=== PATIENT | female | born 1965 | race Caucasian/White ===

== ENCOUNTER 2016-10-23 07:06 | Day surgery (SDC) | payer BC ==
[~2016-10-23 07:06] MED LIST: ACETAMINOPHEN 1,000 MG/100 ML BTL IV ONE; FAMOTIDINE 20MG TABLET PO ONE; MECLIZINE 25 MG TABLET PO ONE; METOCLOPRAMIDE 10 MG TABLET PO ONE
[2016-10-23] MEDS ORDERED: HYDROCODONE/APAP 5/325MG TABLET PO ONE (13:08)
[2016-10-23] MEDS ORDERED: LABETALOL HCL 5MG/ML, 20ML VIAL IVPB ONE (14:00)
[2016-10-23] MEDS ORDERED: MIDAZOLAM HCL 2MG/2ML VIAL IV ONE (14:00)
[2016-10-23] MEDS ORDERED: CHLOROPROCAINE INJ ONE (14:00)
[2016-10-23] MEDS ORDERED: ALFENTANIL HCL 500 MCG/1ML, 2ML AMP IV ONE (14:00)
[2016-10-23] MEDS ORDERED: KETOROLAC 30 MG/ML VIAL IVP ONE (14:00)
[2016-10-23] MEDS ORDERED: ONDANSETRON HCL IV 4 MG/2 ML VIAL IVP ONE (14:00)
[2016-10-23] MEDS ORDERED: PROPOFOL 10 MG/ML VIAL IV ONE (14:00)
--- NOTE | 2016-10-24 09:59 | ULTRASOUND REPORT ---
EXAM: ULTRASOUND GUIDED LEFT BREAST WIRE LOCALIZATION WITH POST PROCEDURE DIGITAL MAMMOGRAPHY AND SPECIMEN RADIOGRAPHY HISTORY: THIS IS A 51-YEAR-OLD FEMALE WITH A 1 CM OVAL HYPOECHOIC MASS AT THE 2 :00 O'CLOCK POSITION OF THE LEFT BREAST. SURGICAL EXCISION. The procedure for ultrasound guided wire localization of the left breast with post procedure digital mammography and specimen radiography was discussed in detail with the patient including risks, alternatives, and possible complications. Informed consent was obtained. The 1 cm hypoechoic mass at the 2:00 o'clock position of the left breast was localized. The skin was prepped and draped in the usual sterile fashion. The skin and subcutaneous tissues were anesthetized with 5 ml of 2% Nesacaine. Under direct ultrasound guidance, a 9 cm Kopans needle was utilized to insert a localization wire immediately adjacent to the hypoechoic mass. The needle was removed and hemostasis achieved. The skin was cleansed and bandaged appropriately. The patient was transferred to the Mammography Suite where full field digital CC and mediolateral views of the left breast were obtained. These demonstrate the thick portion of the localization wire immediately adjacent to the 1 cm mass. Specimen radiography confirms removal of the 1 cm mass and localization wire. IMPRESSION: ULTRASOUND GUIDED LEFT BREAST WIRE LOCALIZATION WITH POST PROCEDURE DIGITAL MAMMOGRAPHY AND SPECIMEN RADIOGRAPHY ABOVE. THE MASS AND LOCALIZATION WIRE ARE CONTAINED WITHIN THE SPECIMEN. JOB NUMBER: [id number] MTDD
--- NOTE | 2016-10-25 12:38 | Operative Note ---
DATE OF SURGERY: 10/23/2016 Surgeon: Pavan Shepard DO PREOPERATIVE DIAGNOSIS: Left breast mass. POSTOPERATIVE DIAGNOSIS: Left breast mass. OPERATION: Wide localization with open left breast biopsy. Indication: The patient is a 51-year-old female who underwent recent mammography. She was noted to have an abnormality on her inner left breast that had the characteristics of a fibroadenoma. I did give her options of observation, stereotactic core biopsy, or open excisional biopsy. She really wanted to minimize the number of procedures which were done and therefore elected to go straight to wide localization and open biopsy. I let her know that if this did come back a malignancy, potential other surgical intervention may be needed. She understood this fully. Thereafter, consent was signed and questions answered. PROCEDURE: She was taken to the operating room and placed in a supine position. General anesthesia was administered per the department of anesthesia. The patient had undergone a prior localization and these films were reviewed with Radiology. The patient's left breast was prepped and draped in sterile fashion. At this time, adequate timeout was performed. No antibiotic was needed preoperatively. At this time, following curvilinear lines, the area was mapped out. The curvilinear incision was then anesthetized with a total of 4 mL of 0.25% Sensorcaine with epinephrine. A 4 cm curvilinear incision was made incorporating the wire in the middle. This was carried down into the subcutaneous tissue. At this time a 4-5 cm circumferential biopsy cavity was created incorporating the mass and wire. This was then sent to radiology where x-ray was done. This did show the mass in the center as well as complete retrieval of the wire. At this time the wound was then irrigated and closed with 3-0 and 4-0 Vicryl. She was taken to the recovery room in satisfactory condition. Final pathology pending. CC: Dr. Rich MARLEY
== END 2016-10-23 11:20 | disposition home or self-care (01) ==
LOC: SUR 07:06
PROVIDERS: ATTEND Surgery
DX: D24.2 Benign neoplasm of left breast (principal); F17.200 Nicotine dependence, unspecified, uncomplicated
CPT/HCPCS: 19125; 19285; 00400; G0206; J1885; J2405; J2400

== ENCOUNTER 2017-06-20 07:49 | Day surgery (SDC) | payer OTHER ==
[~2017-06-20 07:49] MED LIST changes: -ACETAMINOPHEN 1,000 MG/100 ML BTL IV ONE; +SCOPOLAMINE 1 PATCH TDSY TD ONE
[2017-06-20] MEDS ORDERED: FENTANYL PF 100MCG/2ML VIAL IV ONE (07:50)
[2017-06-20] MEDS ORDERED: BUPIVACAINE 0.5% W/EPI MPF 30 ML VIAL IVP ONE (07:50)
[2017-06-20] MEDS ORDERED: PROPOFOL 10 MG/ML VIAL IV ONE (07:50)
--- NOTE | 2017-06-20 18:07 | Operative Note - [place] ---
DATE OF SURGERY: 06/20/17 PREOPERATIVE DIAGNOSIS: CERVICAL SPONDYLOSIS WITHOUT MYELOPATHY, ICD-10 CODE = M47.812. OPERATION: RADIOFREQUENCY RHIZOTOMY BILATERAL CERVICAL FACETS 3/4, 4/5, AND 5/6. SURGEON: KRYSTLE AMARO D.O. ANESTHESIA: LOCAL SEDATION. ANESTHESIA PROVIDER: FREDDIE REYES CRNA INDICATION: This patient presents with primary neck pain. Examination shows diffuse tenderness of the cervical spine. Range of motion causing pain to the neck with extension. Diagnostics show diffuse multiple levels of endplate changes and spondylosis. A facet series 75 to 80% pain control. Due to the failure of therapy and the success of the facet series, the patient presents for rhizotomy for more long-term relief. She is allergic to Lidocaine and allergic to corticosteroids so no Lidocaine will be used and unfortunately the corticosteroid allergy will prevent us from using a Medrol DosePak, which can be quite important in terms of calming the postprocedural pain down. PROCEDURE: Intravenous line, vital sign monitoring, IV sedation, prepped, draped, sterile technique. Facet cervical spine 3/4, 4/5, and 5/6 were identified, marked, and infiltrated. A 22-gauge rhizotomy cannula positioned. Stimulation trials conducted. Rhizotomy burn performed. Local was injected into the sites. Needle was removed. Neck cleaned. Topical antibiotics. Sterile dressing was applied. We will monitor and evaluate. cc: Darrion Lazaro M.D. JOB NUMBER: [id number] MTDD
== END 2017-06-20 10:49 | disposition home or self-care (01) ==
LOC: SUR 07:49
PROVIDERS: ATTEND Pain Medicine Interventional Pain Medicine
DX: M47.812 Spondylosis without myelopathy or radiculopathy, cervical region (principal)
CPT/HCPCS: 64633; 64634 ×2; 01936; J3010

== ENCOUNTER 2017-12-06 15:18 | Emergency (ER) | payer OTHER ==
[2017-12-06 15:51] LABS: BASO % 0.3 % (0-6); EOS % 2.3 % (0-6); GRAN % 57.3 % (47-80); HEMATOCRIT 50.2 % (35.0-47.0); HEMOGLOBIN 16.9 gm/dl (11.6-16.0); LYMPH % 32.7 % (16-45); MEAN CELL VOLUME 95.6 fl (81-97); MEAN CORPUSCULAR HGB CONC 33.7 g/dl (32-36); MEAN PLATELET VOLUME 10.5 fl (7.4-10.4); MONO % 7.4 % (0-9); PLATELET COUNT 308 K/uL (130-400); RED BLOOD COUNT 5.25 M/uL (3.80-5.40); RED CELL DISTRIBUTION WIDTH 13.3 % (11.5-14.5); WHITE BLOOD COUNT W/O DIFF 9.3 K/uL (4.2-12.2)
[2017-12-06 15:52] LABS: MEAN CORPUSCULAR HEMOGLOBIN 32.1 pg (27-33)
[2017-12-06 16:04] LABS: BLOOD UREA NITROGEN 17 mg/dL (6-20); CREATININE 0.9 mg/dL (0.5-0.9); EST GLOMERULAR FILTRATION RATE > 60 mL/min
[2017-12-06 16:07] LABS: GLUCOSE,RANDOM 76 mg/dL (74-109)
--- NOTE | 2017-12-06 16:11 | Emergency Department Record ---
History of Present Illness - General Chief complaint: Abscess Stated complaint: LUMP ON BACK OF NECK Time Seen by Provider: 12/06/17 15:37 Source: Patient Mode of Arrival: Ambulatory Limitations: No limitations - History of Present Illness Initial comments: pt has swelling and tenderness over posterior neck for last day. she has tenz unit wires in the area that were placed 8 years ago complaint: Other Onset/Timin -: Days(s) Hx Tetanus Toxoid Vaccination: Yes (2016) Year of Tetanus Vaccination: 2017 Patient Tetanus UTD (within 5 yrs): Yes Location: Neck Severity: Moderate Severity scale (1-10): 4 Quality: Other Consistency: Constant, Getting worse Improves with: None Worsens with: None Associated symptoms: Denies other symptoms Treatments Prior to Arrival: None - Related Data Previous Rx's Medication Instructions Recorded Cephalexin [Keflex] 500 mg PO TID #21 cap 12/06/17 Hydrocodone/Acetaminophen [[place] 1 each PO Q6HR #7 tablet 12/06/17 5-325 Tablet] Allergies Allergy/AdvReac Type Severity Reaction Status Date / Time lidocaine Allergy ANAPHYLAXIS Verified 12/06/17 15:23 codeine AdvReac NAUSEA AND Verified 12/06/17 15:23 VOMITING erythromycin base AdvReac RASH Verified 12/06/17 15:23 Penicillins AdvReac RASH Verified 12/06/17 15:23 prednisone AdvReac RASH Verified 12/06/17 15:23 Travel Screening - Travel/Exposure Within Last 30 Days Have you traveled within the last 30 days?: No - Travel/Exposure Within Last Year Have you traveled outside the [place] in the last year?: No - Additonal Travel Details Have you been exposed to anyone with a communicable illness?: No - Travel Symptoms Symptom Screening: None Review of Systems Reviewed: No additional complaints except as noted below Constitutional: Reports: As per HPI. Denies: Chills, Fever, Malaise, Night sweats, Weakness, Weight change Eyes: Reports: As per HPI. Denies: Eye discharge, Eye pain, Photophobia, Vision change ENT: Reports: As per HPI. Denies: Congestion, Dental pain, Ear pain, Epistaxis , Hearing loss, Throat pain Respiratory: Reports: As per HPI. Denies: Cough, Dyspnea, Hemoptysis, Stridor, Wheezes Cardiovascular: Reports: As per HPI. Denies: Arrhythmia, Chest pain, Dyspnea on exertion, Edema, Murmurs, Orthopnea, Palpitations, Paroxysmal nocturnal dyspnea, Rheumatic Fever, Syncope Endocrine: Reports: As per HPI. Denies: Fatigue, Heat or cold intolerance, Polydipsia, Polyuria Gastrointestinal: Reports: As per HPI. Denies: Abdominal pain, Constipation, Diarrhea, Hematemesis, Hematochezia, Melena, Nausea, Vomiting Genitourinary: Reports: As per HPI. Denies: Abnormal menses, Discharge, Dyspareunia, Dysuria, Frequency, Hematuria, Incontinence, Retention, Urgency Musculoskeletal: Reports: As per HPI, Neck pain. Denies: Arthralgia, Back pain , Gout, Joint swelling, Myalgia Skin: Reports: As per HPI. Denies: Bruising, Change in color, Change in hair/ nails, Lesions, Pruritus, Rash Neurological: Reports: As per HPI. Denies: Abnormal gait, Confusion, Headache, Numbness, Paresthesias, Seizure, Tingling, Tremors, Vertigo, Weakness Psychiatric: Reports: As per HPI. Denies: Anxiety, Auditory hallucinations, Depression, Homicidal thoughts, Suicidal thoughts, Visual hallucinations Hematological/Lymphatic: Reports: As per HPI. 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) Comment:: carotid artery aneurysm which is clipped 2003 - GI Hx GI Disorders: Yes Hx Reflux: Yes (on meds good control) - Hx Genitourinary Disorders: Yes Hx Bladder Problem: Yes (urethral dilation) Comment:: hyst - ENDOCRINE Hx Endocrine Disorders: Yes Hx Thyroid Disease: Yes Comment:: farheen disease - MUSCULOSKELETAL Hx Musculoskeletal Disorders: Yes Hx Arthritis: Yes (neck) Hx Back Injury: Yes - PSYCH Hx Psych Problems: No - HEMATOLOGY/ONCOLOGY Hx Hematology/Oncology Disorders: No Family Medical History Any Significant Family History?: Yes Hx Cancer: Father *Cancer Comment: bone; prostate; esophageal Hx Heart Disease: Father Physical Exam - General General Appearance: Alert, Oriented x3, Cooperative, Mild distress - Head Head exam: Normal inspection - Eye Eye exam: Normal appearance, PERRL, EOMI Pupils: Normal accommodation - ENT ENT exam: Normal exam, Mucous membranes moist, Normal external ear exam, Normal orophraynx Ear exam: Normal external inspection. negative: External canal tenderness Nasal Exam: Normal inspection. negative: Discharge, Sinus tenderness Mouth exam: Normal external inspection, Tongue normal Teeth exam: Normal inspection. negative: Dental caries Throat exam: Normal inspection. negative: Tonsillar erythema, Tonsillar exudate - Neck Neck exam: Full ROM, Lymphadenopathy, Tenderness - Respiratory Respiratory exam: Normal lung sounds bilaterally. negative: Respiratory distress - Cardiovascular Cardiovascular Exam: Regular rate, Normal rhythm, Normal heart sounds - GI/Abdominal GI/Abdominal exam: Soft, Normal bowel sounds. negative: Tenderness - Rectal Rectal exam: Deferred - exam: Deferred - Extremities Extremities exam: Normal inspection, Full ROM, Normal capillary refill. negative: Tenderness - Back Back exam: Reports: Normal inspection, Full ROM. Denies: Muscle spasm, Rash noted, Tenderness - Neurological Neurological exam: Alert, CN II-XII intact, Normal gait, Oriented X3 - Psychiatric Psychiatric exam: Normal affect, Normal mood - Skin Skin exam: Dry, Intact, Normal color, Warm Course Vital Signs 12/06/17 15:23 Temperature 98.4 F Pulse Rate [ 97 H Pulse Ox Probe] Respiratory 18 Rate Blood Pressure 152/109 [Left Arm] Pulse Ox 96 Medical Decision Making - Lab Data Result diagrams: 12/06/17 15:45 12/06/17 15:45 Lab Results 12/06/17 Range/Units 15:45 WBC 9.3 (4.2-12.2) K/uL RBC 5.25 (3.80-5.40) M/uL Hgb 16.9 H (11.6-16.0) gm/dl Hct 50.2 H (35.0-47.0) % MCV 95.6 (81-97) fl MCH 32.1 (27-33) pg MCHC 33.7 (32-36) g/dl RDW 13.3 (11.5-14.5) % Plt Count 308 (130-400) K/uL MPV 10.5 H (7.4-10.4) fl Gran % 57.3 (47-80) % Lymphocytes % 32.7 (16-45) % Monocytes % 7.4 (0-9) % Eosinophils % 2.3 (0-6) % Basophils % 0.3 (0-6) % Disposition Disposition: Discharge Clinical Impression: Lymphadenitis Disposition: Home, Self-Care Condition: (1) Good Instructions: Lymphadenopathy (ED) Additional Instructions: follow up with dr mcknight and with dr rodriguez. return sooner if worse. moist heat to neck 4 x a day. motrin with food Prescriptions: Hydrocodone/Acetaminophen [[place] 5-325 Tablet] 1 each PO Q6HR #7 tablet Cephalexin [Keflex] 500 mg PO TID #21 cap Forms: Patient Portal Access Quality - Quality Measures Quality Measures: N/A - Blood Pressure Screening Does Patient Have Any of the Following: No Blood Pressure Classification: Hypertensive Reading Systolic Measurement: 152 Diastolic Measurement: 109 Screening for High Blood Pressure: < First Hypertensive BP, F/U Documented > [ G8950] First Hypertensive Follow-up Interventions: Follow-up with rescreen GT 1 day and LT 4 weeks.
--- NOTE | 2017-12-07 07:32 | CT SCAN REPORT ---
EXAM: CT OF THE SOFT TISSUE NECK WITH CONTRAST HISTORY: SWELLING AND PAIN POSTERIORLY. TECHNIQUE: Contrast enhanced CT of the soft tissue neck was obtained. Comparison: None. FINDINGS: Spinal stimulator leads course through the posterior subcutaneous tissues through the posterior neck. No discreet fluid collection is identified. The parapharyngeal spaces are unremarkable. The parotid gland, submandibular gland, and thyroid glands appear normal. The orbits and globes are unremarkable. No cervical adenopathy. Old degenerative disk disease in the cervical spine. IMPRESSION: NERVE STIMULATOR LEADS ARE PRESENT IN THE POSTERIOR NECK. NO DISCREET FLUID COLLECTION OR MASS IS IDENTIFIED. JOB NUMBER: [id number] MTDD
== END 2017-12-06 17:15 | disposition home or self-care (01) ==
LOC: ER 15:18
DX: L04.0 Acute lymphadenitis of face, head and neck (principal); F17.210 Nicotine dependence, cigarettes, uncomplicated
CPT/HCPCS: 99283; 99284; 85025; 80048; 70491; Q9967

== ENCOUNTER 2018-09-29 18:07 | Emergency (ER) | payer BC ==
[2018-09-29] MEDS ORDERED: 0.9 % SODIUM CHLORIDE 1,000 ML BAG IV ONE (18:25)
[2018-09-29] MEDS ORDERED: KETOROLAC 30 MG/ML VIAL IVP ONE (18:25)
--- NOTE | 2018-09-29 18:33 | Emergency Department Record ---
History of Present Illness - General Chief Complaint: Abdominal Pain Stated Complaint: PAIN IN R SIDE Time Seen by Provider: 09/29/18 18:15 Source: Patient Mode of Arrival: Ambulatory Limitations: No limitations - History of Present Illness Initial Comments: pt c/o ruq pain and epigastric pain for 4 days that is getting worse and is constant. resting makes better, movement makes worse. no n/v/c/d. no uti symptoms/ pt has no appy and no gb. MD Complaint: Abdominal pain Onset/Timin -: Days(s) Severity: Moderate Consistency: Constant Improves With: Rest Worsens With: Movement Associated Symptoms: Denies other symptoms - Related Data Patient : No Previous Rx's Medication Instructions Recorded Hydrocodone/Acetaminophen [[place] 1 each PO Q6HR #7 tablet 09/29/18 5-325 Tablet] Omeprazole [Prilosec] 20 mg PO DAILY #10 cap. 09/29/18 Allergies Allergy/AdvReac Type Severity Reaction Status Date / Time acetaminophen Allergy RASH Verified 09/29/18 18:48 [From Darvocet-N] lidocaine Allergy ANAPHYLAXIS Unverified 08/28/18 11:43 propoxyphene Allergy RASH Verified 09/29/18 18:48 [From Darvocet-N] codeine AdvReac NAUSEA AND Unverified 08/28/18 11:43 VOMITING erythromycin base AdvReac RASH Unverified 08/28/18 11:43 Penicillins AdvReac RASH Unverified 08/28/18 11:43 prednisone AdvReac RASH Unverified 08/28/18 11:43 Review of Systems Reviewed: No additional complaints except as noted below Constitutional: Reports: As per HPI. Denies: Chills, Fever, Malaise, Night sweats, Weakness, Weight change Eyes: Reports: As per HPI. Denies: Eye discharge, Eye pain, Photophobia, Vision change ENT: Reports: As per HPI. Denies: Congestion, Dental pain, Ear pain, Epistaxis, Hearing loss, Throat pain Respiratory: Reports: As per HPI. Denies: Cough, Dyspnea, Hemoptysis, Stridor, Wheezes Cardiovascular: Reports: As per HPI. Denies: Arrhythmia, Chest pain, Dyspnea on exertion, Edema, Murmurs, Orthopnea, Palpitations, Paroxysmal nocturnal dyspnea, Rheumatic Fever, Syncope Endocrine: Reports: As per HPI. Denies: Fatigue, Heat or cold intolerance, Polydipsia, Polyuria Gastrointestinal: Reports: As per HPI. Denies: Abdominal pain, Constipation, Diarrhea, Hematemesis, Hematochezia, Melena, Nausea, Vomiting Genitourinary: Reports: As per HPI. Denies: Abnormal menses, Discharge, Dyspareunia, Dysuria, Frequency, Hematuria, Incontinence, Retention, Urgency Musculoskeletal: Reports: As per HPI. Denies: Arthralgia, Back pain, Gout, Joint swelling, Myalgia, Neck pain Skin: Reports: As per HPI. Denies: Bruising, Change in color, Change in hair/nails, Lesions, Pruritus, Rash Neurological: Reports: As per HPI. Denies: Abnormal gait, Confusion, Headache, Numbness, Paresthesias, Seizure, Tingling, Tremors, Vertigo, Weakness Psychiatric: Reports: As per HPI. Denies: Anxiety, Auditory hallucinations, Depression, Homicidal thoughts, Suicidal thoughts, Visual hallucinations Hematological/Lymphatic: Reports: As per HPI. 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) Comment:: carotid artery aneurysm which is clipped 2003 - GI Hx GI Disorders: Yes Hx Reflux: Yes (on meds good control) - Hx Genitourinary Disorders: Yes Hx Bladder Problem: Yes (urethral dilation) Comment:: hyst - ENDOCRINE Hx Endocrine Disorders: Yes Hx Thyroid Disease: Yes Comment:: farheen disease - MUSCULOSKELETAL Hx Musculoskeletal Disorders: Yes Hx Arthritis: Yes (neck) Hx Back Injury: Yes - PSYCH Hx Psych Problems: No - HEMATOLOGY/ONCOLOGY Hx Hematology/Oncology Disorders: No Family Medical History Hx Cancer: Father *Cancer Comment: bone; prostate; esophageal Hx Heart Disease: Father Physical Exam - General General Appearance: Alert, Oriented x3, Cooperative, Mild distress - Head Head exam: Normal inspection - Eye Eye exam: Normal appearance, PERRL, EOMI Pupils: Normal accommodation - ENT ENT exam: Normal exam, Mucous membranes moist, Normal external ear exam, Normal orophraynx Ear exam: Normal external inspection. negative: External canal tenderness Nasal Exam: Normal inspection. negative: Discharge, Sinus tenderness Mouth exam: Normal external inspection, Tongue normal Teeth exam: Normal inspection. negative: Dental caries Throat exam: Normal inspection. negative: Tonsillar erythema, Tonsillar exudate - Neck Neck exam: Normal inspection, Full ROM. negative: Tenderness - Respiratory Respiratory exam: Normal lung sounds bilaterally. negative: Respiratory distress - Cardiovascular Cardiovascular Exam: Regular rate, Normal rhythm, Normal heart sounds - GI/Abdominal GI/Abdominal exam: Soft, Normal bowel sounds, Tenderness - Rectal Rectal exam: Deferred - exam: Deferred - Extremities Extremities exam: Normal inspection, Full ROM, Normal capillary refill. negative: Tenderness - Back Back exam: Reports: Normal inspection, Full ROM. Denies: Muscle spasm, Rash noted, Tenderness - Neurological Neurological exam: Alert, Normal gait, Oriented X3, Reflexes normal - Psychiatric Psychiatric exam: Normal affect, Normal mood - Skin Skin exam: Dry, Intact, Normal color, Warm Course - Reevaluation(s) Reevaluation #1: 09/29/18 21:43 ct is neg Reevaluation #2: 09/29/18 21:44 pt feels better Medical Decision Making - Lab Data Result diagrams: 09/29/18 18:30 09/29/18 18:30 Disposition Disposition: Discharge Clinical Impression: Abdominal pain Qualifiers: Abdominal location: upper abdomen, unspecified Qualified Code(s): R10.10 - Upper abdominal pain, unspecified Disposition: Home, Self-Care Condition: (1) Good Instructions: Abdominal Pain (ED) Additional Instructions: follow up with GI doctor. return sooner if worse Prescriptions: Hydrocodone/Acetaminophen [[place] 5-325 Tablet] 1 each PO Q6HR #7 tablet Omeprazole [Prilosec] 20 mg PO DAILY #10 cap. Referrals: GABRIELLA COATES [DOCTOR OF OSTEOPATH] - [facility] Specialty Clinics [Provider Group] Forms: Patient Portal Access Quality - Quality Measures Quality Measures: N/A - Blood Pressure Screening Does Patient Have Any of the Following: No Blood Pressure Classification: Hypertensive Reading Systolic Measurement: 166 Diastolic Measurement: 116 Screening for High Blood Pressure: < First Hypertensive BP, F/U Documented > [G8950] First Hypertensive Follow-up Interventions: Follow-up with rescreen GT 1 day and LT 4 weeks.
[2018-09-29 19:00] LABS: ABSOLUTE NEUTROPHIL COUNT 3.83; BASO % 0.8 % (0-6); EOS % 2.8 % (0-6); HEMATOCRIT 46.1 % (35.0-47.0); HEMOGLOBIN 15.3 gm/dl (11.6-16.0); LYMPH % 42.2 % (16-45); MEAN CELL VOLUME 94.1 fl (81-97); MEAN CORPUSCULAR HEMOGLOBIN 31.2 pg (27-33); MEAN CORPUSCULAR HGB CONC 33.2 g/dl (32-36); MEAN PLATELET VOLUME 10.4 fl (7.4-10.4); MONO % 6.2 % (0-9); PLATELET COUNT 294 K/uL (130-400); RED CELL DISTRIBUTION WIDTH 13.4 % (11.5-14.5)
[2018-09-29 19:01] LABS: URINE APPEARANCE CLEAR; URINE BILIRUBIN NEGATIVE (NEGATIVE); URINE BLOOD TRACE-I (NEGATIVE); URINE COLOR YELLOW; URINE GLUCOSE (UA) NEGATIVE (NEGATIVE); URINE KETONE NEGATIVE (NEGATIVE); URINE LEUKOCYTE ESTERASE NEGATIVE (NEGATIVE); URINE NITRITE NEGATIVE (NEGATIVE); URINE PROTEIN NEGATIVE (NEGATIVE); URINE UROBILINOGEN 0.2 E.U./dL (0.20 - 1.00)
[2018-09-29 19:11] LABS: URINE BACTERIA NONE SEEN; URINE EPITHELIAL CELLS 0 - 2 (FEW); URINE WBC NONE SEEN (0-2/hpf)
[2018-09-29 19:14] LABS: BLOOD UREA NITROGEN 14 mg/dL (6-20); EST GLOMERULAR FILTRATION RATE > 60 mL/min; LIPASE 32 U/L (13-60); TOTAL PROTEIN 7.2 g/dL (6.6-8.7)
[2018-09-29 19:16] LABS: GLUCOSE,RANDOM 93 mg/dL (74-109)
[2018-09-29 19:19] LABS: ALB/GLOB RATIO 2.1 (1.1-1.8); ALBUMIN 4.9 g/dL (4.0-5.0); ALKALINE PHOSPHATASE 98 U/L (35-104); ALT/SGPT 27 U/L (<33); AST/SGOT 22 U/L (10.0-35.0)
[2018-09-29] MEDS ORDERED: HYDROMORPHONE HCL 2 MG/ML VIAL IVP ONE (20:33)
[2018-09-29] MEDS ORDERED: ONDANSETRON HCL IV 4 MG/2 ML VIAL IVP ONE (20:33)
[2018-09-29] MEDS ORDERED: HYDROCODONE/APAP 5/325MG TABLET PO ONE (22:12)
--- NOTE | 2018-10-02 16:10 | CT SCAN REPORT ---
EXAM: CT SCAN ABDOMEN/PELVIS W CONTRAST HISTORY: RIGHT UPPER QUADRANT ABDOMINAL PAIN FOR FOUR DAYS. APPENDECTOMY, HYSTERECTOMY, CHOLECYSTECTOMY. TECHNIQUE: Axial CT scan of the abdomen and pelvis obtained following both oral or IV contrast administration. Please see the medical record for contrast specifics. COMPARISON: No prior CT abdomen or pelvis with which to compare. FINDINGS: Surgical clips gallbladder fossa consistent with the history of cholecystectomy. Surgical clips near the tip of the cecum consistent with appendectomy, and the uterus not identified consistent with the history of hysterectomy. There is also a metallic battery pack in the subcutaneous tissues of the left posterior buttock region with associated wires extending through the subcutaneous tissues towards the spine but still within the subcutaneous tissues on the highest image obtained through the lung base currently. No definite splenic, adrenal, or pancreatic mass identified. There is diffuse fatty infiltration of the liver. Single, very tiny low-attenuation in the liver is too small to accurately measure but likely just a tiny cyst or hemangioma. There is a single exophytic low-attenuation mass arising from the posteromedial aspect of the left kidney measuring 1.6 cm in size with a somewhat indeterminate CT density of 24. There is a very tiny low-attenuation mass in the right kidney, only about 6 mm in size with an indeterminate CT density of 56. Because of the small size, the CT density measurement in the 6 mm mass may not be accurate due to partial volume averaging. However, these are both indeterminate on this CT and, if not previously documented as bilateral simple cysts, follow-up non- emergent MRI of the kidneys would be suggested for further evaluation, if not contraindicated. Small hiatal hernia. Thick-walled appearance of the proximal stomach in particular is nonspecific but may just be due to incomplete distention with relatively little oral contrast in the stomach at the time of the study. Oral contrast given has passed throughout the small bowel and into the proximal colon with no small bowel obstruction evident. No definite free intraperitoneal air or free intraperitoneal fluid identified. There is some mild prominence of the common duct measuring up to about 1.3 cm in diameter. No appreciable intrahepatic biliary dilatation and this is probably just physiologic related to the post cholecystectomy state but correlation with serum bilirubin is suggested. IMPRESSION: 1. POST-OP CHOLECYSTECTOMY, APPENDECTOMY, AND HYSTERECTOMY. PROBABLE SPINAL STIMULATOR BATTERY PACK IN THE SUBCUTANEOUS TISSUES OF THE LEFT BUTTOCK REGION. 2. MILD DILATATION OF THE COMMON DUCT MAY JUST BE PHYSIOLOGIC RELATED TO THE POST CHOLECYSTECTOMY STATE. CORRELATION WITH SERUM BILIRUBIN IS SUGGESTED. 3. SMALL HIATAL HERNIA. 4. APPROXIMATELY 1.6 CM LOW-ATTENUATION MASS LEFT KIDNEY AND 6 MM LOW- ATTENUATION MASS RIGHT KIDNEY. THESE ARE INDETERMINATE, ALTHOUGH MAY JUST BE CYSTS. FOLLOW-UP MRI IS SUGGESTED, IF NOT PREVIOUSLY DOCUMENTED. THE PATIENT DOES HAVE AN APPARENT SPINAL STIMULATOR ELECTRONIC BATTERY PACK IN THE SUBCUTANEOUS TISSUES OF THE LEFT BUTTOCK REGION AND COMPATIBILITY WITH MRI SCANNING WILL NEED TO BE CONFIRMED PRIOR TO ANY POSSIBLE MRI SCAN. 5. MILD DIFFUSE FATTY INFILTRATION OF THE LIVER. SINGLE TINY LOW-ATTENUATION IN THE LIVER, TOO SMALL TO ACCURATELY MEASURE BY DENSITY BUT IS LIKELY A TINY CYST OR HEMANGIOMA. 6. THICK-WALLED APPEARANCE OF THE STOMACH IS PRESUMABLY JUST DUE TO INCOMPLETE DISTENTION, ALTHOUGH NONSPECIFIC. JOB NUMBER: [id number] MTDD
== END 2018-09-29 22:20 | disposition home or self-care (01) ==
LOC: ER 18:07
DX: R10.13 Epigastric pain (principal); R10.11 Right upper quadrant pain; F17.210 Nicotine dependence, cigarettes, uncomplicated
CPT/HCPCS: 74177; 80053; 81001; 83690; 85025; 96374; 96375; 99284; J1885; J2405; J7030

== ENCOUNTER 2019-02-14 07:49 | Day surgery (SDC) | payer BC ==
[2019-02-14] MEDS ORDERED: PROPOFOL 10 MG/ML VIAL IV ONE (07:50)
[2019-02-14] MEDS ORDERED: FENTANYL PF 100MCG/2ML VIAL IV ONE (07:50)
[2019-02-14] MEDS ORDERED: ONDANSETRON HCL IV 4 MG/2 ML VIAL IVP ONE (07:50)
--- NOTE | 2019-02-17 12:30 | Operative Note ---
SURGEON: Kaley Arzola MD OPERATION: 1. ESOPHAGOGASTRODUODENOSCOPY. 2. COLONOSCOPY. INDICATIONS: This is a 53-year-old female with history of right upper quadrant abdominal pain and hematochezia who presented for both esophagogastroduodenoscopy and colonoscopy. POSTOPERATIVE DIAGNOSES: 1. Normal esophagus 2. Diffuse gastritis with a small gastric antral diverticulum. 3. Normal duodenum. 4. A 6 mm sessile polyp in the mid ascending colon that was removed by cold snare. 5. A 6 mm sessile polyp in the descending colon that was removed by cold snare. 6. A 1 cm rectal polyp that was removed by cold snare. 7. Otherwise normal colon to the terminal ileum. ANESTHESIA: Sedation is per Anesthesia. Pulse oximetry was monitored throughout the procedure to maintain O2 saturation of 90% or greater. Supplemental oxygen was administered via nasal cannula. Cardiac and vital signs were monitored throughout the duration of the procedure, and they were stable. The procedures of esophagogastroduodenoscopy and colonoscopy and risks and benefits of the procedures, including the risk of bleeding and perforation, among others, were explained to the patient who voiced understanding and agreed to have the procedures done. Physical examination was performed, and the patient was found stable for sedation. PROCEDURE: The patient was placed in the left lateral position. Sedation was initiated. A plastic bite block was inserted into the oral cavity. The Olympus [id number] gastroscope was introduced into the oral cavity and advanced to the proximal esophagus without difficulty. The esophageal mucosa was carefully examined upon introduction of the gastroscope. The proximal and mid and distal esophageal mucosa appeared normal. The gastroscope was then advanced into the stomach, and surveillance of the stomach revealed diffuse erythema involving the gastric body and antrum but no ulcers were noted. There was a small diverticulum within the gastric antrum. The gastroscope was then advanced to the descending duodenum without difficulty. The duodenal bulb and descending duodenal mucosa appeared normal. The gastroscope was then withdrawn into the stomach and retroflexion was performed. There were no other lesions noted. The gastroscope was then withdrawn while carefully examining the gastric and esophageal mucosa. No other lesions noted. The patient remained with stable vital signs and was repositioned for colonoscopy. A digital rectal exam was performed and showed some mild external hemorrhoids with no palpable rectal masses. An Olympus PCF-180AL colonoscope was then inserted into the rectum under direct visualization. It was advanced to the cecum without difficulty. The ileocecal valve and appendiceal orifice were identified and photographed. The colonic mucosa was carefully examined upon introduction of the colonoscope. There was a 6 mm polyp that was noted in the ascending colon that was removed by cold snare. The ileocecal valve was intubated and terminal ileal mucosa was inspected for about 10 cm and it appeared normal. The colonoscope was then withdrawn while carefully examining the colonic mucosal surfaces. There were no other lesions noted in the cecum, ascending colon, or transverse colon. In the descending colon was a 6 mm sessile polyp that was removed by cold snare. This sigmoid colon was normal. In the rectum was an ulcerated 1 cm sessile polyp that was noted and was removed by cold snare. There were no other lesions noted. Retroflexion was normal. The colonoscope was then withdrawn and the procedure was terminated. The patient tolerated the procedure well without any immediate complications. The patient remained with stable vital signs and was transferred to the recovery room. RECOMMENDATIONS: 1. The patient is to continue her proton pump inhibitors. 2. Follow up on the biopsies. 3. The patient is to have a repeat colonoscopy for surveillance in 3 years. Thank you for allowing me to participate in the care of your patient. AYAKA
== END 2019-02-14 10:20 | disposition home or self-care (01) ==
LOC: HOP 07:49
PROVIDERS: ATTEND Internal Medicine Gastroenterology
DX: R10.11 Right upper quadrant pain (principal); K92.1 Melena; D12.2 Benign neoplasm of ascending colon; D12.4 Benign neoplasm of descending colon; D12.8 Benign neoplasm of rectum; K29.70 Gastritis, unspecified, without bleeding; K31.4 Gastric diverticulum
CPT/HCPCS: J2405